=== PATIENT | male | born 1965 ===

== ENCOUNTER 2018-12-19 14:07 | Outpatient (REF) | payer BC, SELFPAY ==
[2018-12-19 20:59] LABS: HCT 41.4 % (40.0-50.0); HGB 14.1 g/dL (13.5-17.5); Mean Corp. HGB Concentration 34.1 g/dL (32.0-36.0); Mean Corpuscular Hemoglobin 32.6 pg (27.0-33.0); Mean Corpuscular Volume 95.8 fL (80-95); Mean Platelet Volume 9.7 fL (8.0-11.0); Platelet Count 265 x1000/uL (130-400); RBC 4.32 m/cumm (4.50-6.00); RBC Distribution Width 12.1 % (11.8-14.1); White Blood Cell Count 5.59 k/cumm (4.4-10.8)
[2018-12-19 21:07] LABS: BUN 15 mg/dL (7-18); CREATININE 1.13 mg/dL (0.70-1.30); Calcium 8.7 mg/dL (8.5-10.1); Chloride 101 mmol/L (98-107); Glucose 95 mg/dL (70-100); Potassium 4.1 mmol/L (3.5-5.1); Sodium 139 mmol/L (136-145)
[2018-12-19 21:08] LABS: Bilirubin Negative (Negative); Blood Small (Negative); Clarity Cloudy (Clear); Glucose Negative (Negative); Ketones Negative (Negative); Leukocyte Esterase Negative (Negative); Nitrite Negative (Negative); Specific Gravity 1.025 (1.005-1.025); Urobilinogen 0.2 EU/dL (Up TO 0.2); pH 5.5 (5-8)
[2018-12-19 21:22] LABS: Microalb ug/mg Crea 3.2 ug/mg Cr
[2018-12-19 21:37] LABS: Epithelial Cells Negative HPF (Negative); RBC Negative (0-2); WBC Negative HPF (0-5)
[2018-12-19 21:38] LABS: C & S Indicated? C&S Done As Ordered; Casts Negative LPF (Negative); Crystals Many Amorphous HPF (Negative); Mucus Negative (Negative)
== END 2018-12-19 14:27 ==
LOC: NCHCN 14:07
PROVIDERS: PCP Family Medicine; Visit Provider Nurse Practitioner Family
DX: R82.90 Unspecified abnormal findings in urine (principal); I10 Essential (primary) hypertension
CPT/HCPCS: 80048; 85027; 81003; 81015; 82043; 82570; 87086

== ENCOUNTER 2018-12-26 20:16 | Outpatient (REF) | payer BC, SELFPAY ==
[2018-12-26 20:20] LABS: Bilirubin Negative (Negative); Blood Negative (Negative); Clarity Clear (Clear); Glucose Negative (Negative); Ketones Negative (Negative); Leukocyte Esterase Negative (Negative); Nitrite Negative (Negative); Specific Gravity 1.015 (1.005-1.025); pH 7.5 (5-8)
== END 2018-12-26 20:36 ==
LOC: NCHCN 20:16
PROVIDERS: PCP Family Medicine; Visit Provider Nurse Practitioner Family
DX: R31.9 Hematuria, unspecified (principal); R82.90 Unspecified abnormal findings in urine
CPT/HCPCS: 81003

== ENCOUNTER 2020-06-29 19:20 | Outpatient (REF) | payer BC, SELFPAY ==
[2020-06-29 22:27] LABS: Anion Gap 7.1 mmol/L (3-11); BUN 16 mg/dL (7-18); CO2 29.9 mmol/L (21.0-32.0); CREATININE 1.2 mg/dL (0.70-1.30); Calcium 8.9 mg/dL (8.5-10.1); Calculated LDL 106 mg/dL (<100); Chloride 100 mmol/L (98-107); Cholesterol 170 mg/dL (<200); Glucose 93 mg/dL (74-106); HDL Cholesterol 48 mg/dL (40-60); Potassium 4.1 mmol/L (3.5-5.1); Sodium 137 mmol/L (136-145); Triglyceride 80 mg/dL (<150)
[2020-07-01 10:07] LABS: Hepatitis C Ab w Rflx HCV PCR Negative (Negative)
== END 2020-06-29 19:21 | disposition home or self-care (01) ==
LOC: NCHCN 19:20
PROVIDERS: PCP Family Medicine; Visit Provider Nurse Practitioner Family
DX: Z00.00 Encounter for general adult medical examination without abnormal findings (principal); I10 Essential (primary) hypertension; Z11.59 Encounter for screening for other viral diseases
CPT/HCPCS: 80048; 80061; 86803

== ENCOUNTER 2021-08-21 16:22 | Outpatient (REF) | payer BC, SELFPAY ==
[2021-08-21 21:24] LABS: Anion Gap 7.8 mmol/L (3-11); BUN 20 mg/dL (7-18); CO2 30.2 mmol/L (21.0-32.0); CREATININE 1.1 mg/dL (0.70-1.30); Chloride 101 mmol/L (98-107); Glucose 80 mg/dL (74-106); Potassium 4.4 mmol/L (3.5-5.1); Sodium 139 mmol/L (136-145)
[2021-08-22 18:41] LABS: PSA, Screening 1.3 ng/mL (<=3.5)
== END 2021-08-21 16:23 | disposition home or self-care (01) ==
LOC: NCHCN 16:22
PROVIDERS: PCP Family Medicine; Visit Provider Nurse Practitioner Family
DX: Z00.00 Encounter for general adult medical examination without abnormal findings (principal); I10 Essential (primary) hypertension; Z12.5 Encounter for screening for malignant neoplasm of prostate
CPT/HCPCS: 80048; 84153

== ENCOUNTER 2023-10-21 15:53 | Outpatient (REF) | payer BC, SELFPAY ==
[2023-10-21 15:25] LABS: HCT 42.5 % (40.0-50.0); HGB 14.2 g/dL (13.5-17.5); MCH 31.8 pg (27.0-33.0); MCHC 33.4 % (32.0-36.0); MCV 95 fL (80-95); MPV 9.7 fL (8.0-11.0); Platelet Count 222 10^3/uL (130-400); RBC 4.46 10^6/uL (4.36-5.78); RDW 11.8 % (11.8-14.1); RDW-SD 41.2 fL; WBC 4.18 10^3/uL (4.4-10.8)
[2023-10-21 15:43] LABS: ALT 30 U/L (16-63); AST 29 U/L (15-37); Albumin 4.2 g/dL (3.4-5.0); Alkaline Phosphatase 58 U/L (46-116); Anion Gap 5.4 mmol/L (3-11); BUN 16 mg/dL (7-18); CO2 30.6 mmol/L (21.0-32.0); CREATININE 1.1 mg/dL (0.70-1.30); Calcium 8.4 mg/dL (8.5-10.1); Chloride 104 mmol/L (98-107); Glucose 104 mg/dL (74-106); Potassium 4.5 mmol/L (3.5-5.1); Sodium 140 mmol/L (136-145); Total Protein 7.3 g/dL (6.4-8.2)
== END 2023-10-21 15:54 | disposition home or self-care (01) ==
LOC: NCHCN 15:53
PROVIDERS: PCP Family Medicine; Visit Provider Nurse Practitioner Family
DX: I10 Essential (primary) hypertension (principal); K22.70 Barrett's esophagus without dysplasia
CPT/HCPCS: 80053; 85027

== ENCOUNTER 2024-10-27 18:29 | Outpatient (REF) | payer BC, SELFPAY ==
[2024-10-27 16:20] LABS: HCT 40.3 % (40.0-50.0); HGB 13.3 g/dL (13.5-17.5); MCH 31.3 pg (27.0-33.0); MCHC 33.0 % (32.0-36.0); MCV 95 fL (80-95); MPV 9.3 fL (8.0-11.0); Platelet Count 208 10^3/uL (130-400); RBC 4.25 10^6/uL (4.36-5.78); RDW 11.8 % (11.8-14.1); RDW-SD 40.4 fL; WBC 4.33 10^3/uL (4.4-10.8)
[2024-10-27 16:43] LABS: ALT 33 U/L (16-63); AST 28 U/L (15-37); Albumin 4.2 g/dL (3.4-5.0); Alkaline Phosphatase 57 U/L (46-116); Anion Gap 6.3 mmol/L (3-11); BUN 26 mg/dL (7-18); Bilirubin, Total 0.7 mg/dL (0.2-1.0); CO2 29.7 mmol/L (21.0-32.0); Calcium 8.7 mg/dL (8.5-10.1); Calculated LDL 117 mg/dL (<100); Chloride 102 mmol/L (98-107); Cholesterol 170 mg/dL (<200); Estimated GFR 87.24 (mL/min/1.73m2); Glucose 107 mg/dL (74-106); HDL Cholesterol 46 mg/dL (>or=40); Magnesium 1.8 mg/dL (1.8-2.4); Potassium 4.6 mmol/L (3.5-5.1); Sodium 138 mmol/L (136-145); Total Protein 7.2 g/dL (6.4-8.2); Triglyceride 39 mg/dL (<150)
== END 2024-10-27 18:30 | disposition home or self-care (01) ==
LOC: NCHCN 18:29
PROVIDERS: PCP Family Medicine; Visit Provider Nurse Practitioner Family
DX: K22.70 Barrett's esophagus without dysplasia (principal); I10 Essential (primary) hypertension
CPT/HCPCS: 80053; 80061; 85027; 83735

== ENCOUNTER 2024-11-03 17:43 | Outpatient (REF) | payer BC, SELFPAY ==
[2024-11-03 21:12] LABS: Iron 78 ug/dL (65-175); Total Iron Binding Capacity 254 ug/dL (250-450); Transferrin Sat 31 % (20-55)
[2024-11-03 21:40] LABS: Ferritin 210 ng/mL (26-388); Folate 15.9 ng/mL (8.6-20.0); Vitamin B12 308 pg/mL (193-986)
[2024-11-04 18:26] LABS: PSA, Screening 1.4 ng/mL (<=3.5)
== END 2024-11-03 17:44 | disposition home or self-care (01) ==
LOC: NCHCN 17:43
PROVIDERS: PCP Family Medicine; Visit Provider Nurse Practitioner Family
DX: D64.9 Anemia, unspecified (principal); Z12.5 Encounter for screening for malignant neoplasm of prostate
CPT/HCPCS: 84153; 82607; 82728; 82746; 83540; 83550; 85045

== ENCOUNTER 2024-12-31 15:06 | Outpatient (REF) | payer BC, SELFPAY ==
[2024-12-31 20:59] LABS: HCT 38.8 % (40.0-50.0); HGB 13.1 g/dL (13.5-17.5); MCH 31.6 pg (27.0-33.0); MCHC 33.8 % (32.0-36.0); MCV 94 fL (80-95); MPV 9.5 fL (8.0-11.0); Platelet Count 225 10^3/uL (130-400); RBC 4.15 10^6/uL (4.36-5.78); RDW 11.6 % (11.8-14.1); RDW-SD 39.8 fL; WBC 5.51 10^3/uL (4.4-10.8)
[2024-12-31 21:34] LABS: Ferritin 263 ng/mL (26-388); Folate 17.2 ng/mL (8.6-20.0); Vitamin B12 306 pg/mL (193-986)
== END 2024-12-31 15:07 | disposition home or self-care (01) ==
LOC: NCHCN 15:06
PROVIDERS: PCP Family Medicine; Visit Provider Nurse Practitioner Family
DX: D64.9 Anemia, unspecified (principal)
CPT/HCPCS: 85027; 82607; 82728; 82746